=== PATIENT | female | born 1960 | race Hispanic/Latino ===

== ENCOUNTER 2017-10-19 10:11 | Day surgery (SDC) | payer OTHER ==
[~2017-10-19] VITALS: Ht 152.4 cm; Wt 72.6 kg
[~2017-10-19 10:11] MED LIST: ALBUTERO3 IN; LEVOTHYROXIN50 MCG PO
[2017-10-19] MEDS ORDERED: PROTONIX40 M2 PO (11:41)
[2017-10-19] MEDS ORDERED: CARAFATE1 GM PO (11:41)
[2017-10-19 12:14] VITALS: BP 104/65
== END 2017-10-19 12:20 | disposition home or self-care (01) | DRG 392 ==
LOC: ENDO 10:11 → ORM 12:30 → ENDO 12:30
PROVIDERS: ATTEND Surgery
PROC: 0DB78ZX Excision of Stomach, Pylorus, Via Natural or Artificial Opening Endoscopic, Diagnostic (ICD-10-PCS; principal; 2017-10-19)
PROC: 0DJD8ZZ Inspection of Lower Intestinal Tract, Via Natural or Artificial Opening Endoscopic (ICD-10-PCS; 2017-10-19)
DX: K29.50 Unspecified chronic gastritis without bleeding (principal); B96.81 Helicobacter pylori [H. pylori] as the cause of diseases classified elsewhere; K57.30 Diverticulosis of large intestine without perforation or abscess without bleeding; K80.20 Calculus of gallbladder without cholecystitis without obstruction